=== PATIENT | female | born 1970 | race Caucasian/White ===

== ENCOUNTER → 2024-02-04 | Outpatient (CLI) | payer BC | END | disposition home or self-care (01) | LOC: RADMAMWWP 08:30 | PROVIDERS: ATTEND Obstetrics & Gynecology | DX: Z53.9 Procedure and treatment not carried out, unspecified reason (principal) ==

== ENCOUNTER → 2024-02-19 | Outpatient (CLI) | payer BC ==
--- NOTE | 2024-02-19 13:36 | P.GSCN ---
History of Present Illness Consult date: 02/19/24 Reason for Consult: Left breast lump Requesting physician: Ena Garza History of present illness: Pilar is a 53 year old female seen in consultation for Dr. Garza regarding a left breast mass. Mammogram on 10-28-2023 with a left breast ultrasound. This was BI-RADS 3 probably benign 6-month follow-up ultrasound. Ultrasound revealed nodules somewhat variable and internal density benign demonstrating morphology considered more suspicious than any other. The patient felt a nodule on the right chest wall laterally and one month later Dr. Garza noted nodularity in the left breast. The patient continues to feel nodularity in the lateral right chest wall. The patient had never felt changes in the left breast herself. She is not complaining of pain in the breast. She is not complaining of nipple discharge or skin changes. She has not had any recent trauma or infection in the breast. Caffeine: 4 cups coffee/day nicotine: 5 cigarettes/day, 20 years chocolate: occasional BCP: in remote past for less than 5 years hormones: none Familhy History: father: pancreatic cancer; drinker Hrmonal History: menarche: 16 , breast fed: no, age at first : 31 menopause: still having periods irregular Medical History: Rheumatoid Arthritis/ renvok was taking hydroxy/chloroquine Social History: nicotine: Cigarettes per day Alcohol: Occasional Drugs: Negative Review of Systems - Constitutional Reports sweats - EENT Eyes: denies blurred vision Ears: deny: decreased hearing, tinnitus Ears, nose, mouth and throat: Denies dysphagia - Breasts bilateral: as per HPI - Cardiovascular Denies chest pain, Denies shortness of breath - Respiratory Denies cough, Denies 7 - Gastrointestinal Reports as per HPI - Musculoskeletal Reports as per HPI - Integumentary Denies rash, Denies unusual bruising - Neurological Denies headaches, Denies syncope - Psychiatric Reports as per HPI - Endocrine Reports as per HPI, Reports fatigue - Hematologic/Lymphatic Denies easy bleeding, Denies easy bruising - Allergic/Immunologic Reports as per HPI Past Medical History History of Any Multi-Drug Resistant Organisms: None Reported - Sexual Orientation/Gender Identity What was your sex assigned at ?: Female Preferred Pronoun: She/Her/Hers Do you identify as transgender: No How would you describe your gender identity?: Woman Do you think of your sexual orientation as: Straight/Heterosexual Smoking Status: Current every day smoker Past Alcohol Use History: Occasional Medications and Allergies Allergies Allergy/AdvReac Type Severity Reaction Status Date / Time No Known Allergies Allergy Verified 02/19/24 13:05 Surgical - Exam Vital Signs Temp Pulse Resp BP Pulse Ox 97.6 F 67 15 123/76 98 02/19/24 13:06 02/19/24 13:06 02/19/24 13:06 02/19/24 13:06 02/19/24 13:06 - General no distress - Eyes normal ocular movement - Neck trachea midline - Respiratory normal respiratory effort, clear to auscultation - Cardiovascular Rhythm: regular Heart Sounds: normal: S1, S2 - Abdomen Abdomen: soft, non tender, no guarding, no rigid, no rebound - Integumentary normal turgor - Neurologic no disoriented, no combative - Musculoskeletal normal gait - Psychiatric oriented to time, oriented to person, oriented to place, speech is normal, memory intact breast Exam: BRA: 36B Inspection: Bilateral grade 2 ptosis Palpation: Right breast: Multi positional exam fibrocystic changes, in the lateral aspect there is approximately a 4 mm area of nodularity which is freely mobile but very firm Very nodular breast otherwise but no dominant masses or nodules of concern Right axilla: No adenopathy of concern Left breast: Multi positional exam multiple areas of nodularity in the upper outer quadrant region as well as at the 12:00 region, Left axilla: No adenopathy of concern Results Bilateral mammogram reviewed very dense, left breast ultrasound reviewed appears to have cystic changes Assessment and Plan Assessment: Impression: Nodule right chest wall Nodule left breast upper outer quadrant very dense breast Plan: Bilateral breast MRI Excision of lesion right chest wall in the operating room Consider core biopsy palpable masses left breast after MRI CC: Dr. Garza
[2024-02-19 13:41] VITALS: BP 123/76; PULSE 67; RESP 15; TEMP 97.6
== END ==
LOC: WWCWWP 11:50
PROVIDERS: ATTEND Surgery
DX: N63.21 Unspecified lump in the left breast, upper outer quadrant (principal); R22.2 Localized swelling, mass and lump, trunk; F17.210 Nicotine dependence, cigarettes, uncomplicated

== ENCOUNTER → 2024-03-16 | Outpatient (CLI) | payer BC ==
--- NOTE | 2024-03-18 07:58 | BMR ---
EXAM DATE: 03/16/2024 EXAM DESCRIPTION: MRI-Breast Bilat (W/WO Contrast) INDICATION: Bilateral breast pain. History of breast cysts. COMPARISON: Comparison was made to prior relevant imaging available in PACS TECHNIQUE: Multiplanar multisequence breast MRI was performed prior to and after administration of 5.5 mL of Gadavist intravenously. Post processing was performed utilizing a [employer] workstation. The exam was performed at the [facility] and was provided to review by [facility]. FINDINGS: There is moderate, symmetric background parenchymal enhancement in breasts that are composed of extremely dense fibroglandular tissue. RIGHT BREAST: Review of the dynamic contrast enhanced series shows no rapidly enhancing masses, suspicious enhancement patterns or other abnormalities. The T2 weighted series show numerous well-circumscribed T2 hyperintense nonenhancing masses throughout the right breast with the largest 1.8 x 1.1 cm at 11 o'clock position posterior depth (series 401, image 50) compatible with benign cysts. LEFT BREAST: Review of the dynamic contrast enhanced series shows no rapidly enhancing masses, suspicious enhancement pattern or other abnormalities. The T2 weighted series show numerous well-circumscribed T2 hyperintense nonenhancing masses throughout the left breast with the largest at 12 o'clock position anterior depth measuring 1.6 x 1.2 cm (series 401, image 42) compatible with benign cysts. INCIDENTALS: There is a wedge-shaped mildly T2 hyperintense enhancing soft tissue in the anterior mediastinum which measures grossly 3.7 x 1.4 cm (series 401, image 53 and series 503, image 622). There are slightly prominent bilateral axillary lymph nodes, the largest 2.0 x 0.8 cm on the right (series 401, image 68) and 1.8 x 0.8 cm on the left (series 401, image 65). IMPRESSION: 1. No MR evidence of malignancy in either breast. Numerous benign cysts in both breasts. BI-RADS category 2-benign. Recommendation: MRI screening in 1 year. 2. A 3.7 x 1.4 cm enhancing soft tissue in the anterior mediastinum concerning for thymoma versus residual thymus. Recommend further evaluation with CT chest with contrast. 3. Bilateral mildly prominent axillary lymph nodes which may be reactive. Recommend clinical follow-up. If clinically concerning, they may be further evaluated with axillary ultrasound. [facility]
== END | disposition home or self-care (01) ==
LOC: RADMRIMAIN 07:47
PROVIDERS: ATTEND Surgery
DX: N63.25 Unspecified lump in the left breast, overlapping quadrants (principal); N63.11 Unspecified lump in the right breast, upper outer quadrant; N60.01 Solitary cyst of right breast; N60.02 Solitary cyst of left breast; R59.0 Localized enlarged lymph nodes
CPT/HCPCS: 77049; A9585

== ENCOUNTER → 2024-03-26 | Outpatient (CLI) | payer BC ==
--- NOTE | 2024-03-26 10:38 | P.PN ---
Subjective Progress Note Date: 03/26/24 Principal diagnosis: mass right chest wall left breast lump Requesting physician: Ena Garza History of present illness: Pilar is a 53 year old female seen in consultation for Dr. Garza regarding a left breast mass. Mammogram on 10-28-2023 with a left breast ultrasound. This was BI-RADS 3 probably benign 6-month follow-up ultrasound. Ultrasound revealed nodules somewhat variable and internal density benign demonstrating morphology considered more suspicious than any other. The patient felt a nodule on the right chest wall laterally and one month later Dr. Garza noted nodularity in the left breast. The patient continues to feel nodularity in the lateral right chest wall. The patient had never felt changes in the left breast herself. She is not complaining of pain in the breast. She is not complaining of nipple discharge or skin changes. She has not had any recent trauma or infection in the breast. The patient had a bilateral MRI of the breast done on 03-16-24. This did not show any lesions of concern in the breast, but noted an anterior mediastinal lesion, bilateral milldy prominate lymph nodes. The patient still feels the nodularity on the right chest wall. Caffeine: 4 cups coffee/day nicotine: 5 cigarettes/day, 20 years chocolate: occasional BCP: in remote past for less than 5 years hormones: none Familhy History: father: pancreatic cancer; drinker Hrmonal History: menarche: 16 , breast fed: no, age at first : 31 menopause: still having periods irregular Medical History: Rheumatoid Arthritis/ renvok was taking hydroxy/chloroquine Social History: nicotine: Cigarettes per day Alcohol: Occasional Drugs: Negative Review of Systems - Constitutional Reports sweats - EENT Eyes: denies blurred vision Ears: deny: decreased hearing, tinnitus Ears, nose, mouth and throat: Denies dysphagia - Breasts bilateral: as per HPI - Cardiovascular Denies chest pain, Denies shortness of breath - Respiratory Denies cough - Gastrointestinal Reports as per HPI - Musculoskeletal Reports as per HPI - Integumentary Denies rash, Denies unusual bruising - Neurological Denies headaches, Denies syncope - Psychiatric Reports as per HPI - Endocrine Reports as per HPI, Reports fatigue - Hematologic/Lymphatic Denies easy bleeding, Denies easy bruising - Allergic/Immunologic Reports as per HPI Past Medical History History of Any Multi-Drug Resistant Organisms: None Reported - Sexual Orientation/Gender Identity What was your sex assigned at ?: Female Preferred Pronoun: She/Her/Hers Do you identify as transgender: No How would you describe your gender identity?: Woman Do you think of your sexual orientation as: Straight/Heterosexual Smoking Status: Current every day smoker Past Alcohol Use History: Occasional Medications and Allergies Allergies Allergy/AdvReac Type Severity Reaction Status Date / Time No Known Allergies Allergy Verified 02/19/24 13:05 Objective - Constitutional General appearance: Present: cooperative - EENT Eyes: Present: EOMI ENT: Present: hearing grossly normal - Neck Neck: Present: normal ROM - Respiratory Respiratory: bilateral: CTA - Cardiovascular Heart sounds: normal: S1, S2 - Integumentary Integumentary: Present: normal turgor - Musculoskeletal Musculoskeletal: Present: gait normal - Psychiatric Psychiatric: Present: A&O x's 3, appropriate affect, intact judgment & insight - Additional findings Additional findings: breast Exam: BRA: 36B Inspection: Bilateral grade 2 ptosis Palpation: Right breast: Multi positional exam fibrocystic changes, in the lateral aspect there is approximately a 4 mm area of nodularity which is freely mobile but very firm Very nodular breast otherwise but no dominant masses or nodules of concern Right axilla: Shotty adenopathy Left breast: Multi positional exam multiple areas of nodularity in the upper outer quadrant region as well as at the 12:00 region, Left axilla: Shotty adenopathy No cervical adenopathy of concern, there is prominence of the left clavicle and firmness at this site Bilateral shotty adenopathy in the axilla Liver and spleen are not enlarged No groin adenopathy of concern Assessment and Plan Assessment: Impression: Nodule right chest wall Nodule left breast upper outer quadrant very dense breast MRI no lesions of concern in the breast/bilateral axillary lymph nodes/questionable thymoma Plan: Next CT with contrast to evaluate possible thymoma Excision of lesion right chest wall in the operating room Bilateral axillary ultrasound with ultrasound of the left breast palpable mass as well CC: Dr. Garza
[2024-03-26 10:45] VITALS: BP 113/72; PULSE 72; RESP 17; TEMP 97.8
--- NOTE | 2024-03-26 11:44 | USB ---
Reason for Exam: MRI abnormality. Risk Values: [place] 5 year model risk: 0.7%. NCI Lifetime model risk: 5.9%. Technique: Method: Targeted. Prior Study Comparison: 03/16/2024 Bilateral MR breast bilat wo/w con, [facility]. Findings: The area of palpable concern of both breasts and the axilla of both breasts were scanned. Targeted ultrasound of the bilateral axilla as well as the right palpable site at 9:00 in the left palpable site at 12:00. Right: Lymph nodes are present measuring up to 1.8 x 1.0 x 0.7 cm. There is cortical thickening up to 5.6 mm. Security Investigator tissue sampling can be performed. At the 9:00 palpable site, a 10 m from the nipple, very superficial in location, adjacent oval circumscribed hypoechoic nodules with internal vascularity measuring 8 mm. The surgeon has planned excision for both of these. Left: Similar prominent lymph nodes, largest measuring 2.2 x 0.8 x 0.6 cm. Cortical thickness measuring up to 3.3 mm. At the patient's 12:00 palpable site, 4 7 m from the nipple, there are a couple benign cysts, largest measuring 1.2 cm. Overall Assessment: Suspicious, BI-RAD 4 Management: Ultrasound Core Biopsy of the right breast. Dominant lymph node. Excision is already planned by the surgeon for the superficial palpable nodules 9:00 right breast. Area Results were given to the patient verbally at the time of exam. Electronically signed and approved by: Mary Ann Santiago M.D. Radiologist
== END ==
LOC: WWCWWP 09:56
PROVIDERS: ATTEND Surgery
DX: R22.2 Localized swelling, mass and lump, trunk (principal); N63.21 Unspecified lump in the left breast, upper outer quadrant; N60.01 Solitary cyst of right breast; F17.210 Nicotine dependence, cigarettes, uncomplicated; Z98.890 Other specified postprocedural states

== ENCOUNTER → 2024-03-29 | Outpatient (CLI) | payer BC ==
--- NOTE | 2024-03-29 12:15 | CT ---
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 Coronal/sagittal reconstructions performed. CT DLP: 896 mGycm Automated exposure control for dose reduction was used. FINDINGS: Neck: Leftward nasal septal deviation. 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 Visualized orbits and globes, remainder of the paranasal sinuses, and mastoid air cells appear clear. Visualized intracranial structures show no gross abnormality. The nasopharynx appears clear. There is moderate hypertrophy of the bilateral lingual palatine tonsils. Epiglottis and prevertebral soft tissues are satisfactory. Glottic and subglottic structures and tracheal column appear clear. The thyroid gland, submandibular glands appear satisfactory. Mild atrophy of the bilateral parotid gl ands. No cervical adenopathy is seen. Reversal of the normal cervical lordosis with hypertrophic facet arthropathy and grade 1 anterolisthe sis C3-C4 and grade 1 retrolisthesis C5-C6. CHEST: Heart normal size without pericardial effusion. Aorta normal caliber with conventional access branching anatomy. Nonenlarged to borderline sized bilateral axillary lymph nodes measuring up to 1.6 x 0.7 cm on the ri ght and 1.3 x 0.6 cm on the left. Otherwise, no thoracic lymphadenopathy by CT size criteria. Within the anterior mediastinum, there is mixed soft tissue and fat density. Some of these areas show a somewhat rounded contour, for example, axial image 32 but given the findings are mixed fat density , thymic hyperplasia remains favored. No cystic change or calcifications are identified. Most of this anterior mediastinal density shows concave margins. There is biapical pleural-parenchymal scarring. No consolidation or pleural effusion. Visualized upper abdomen shows no gross abnormality. Bones: Osseous destructive process. IMPRESSION: NECK: 1. MODERATE BILATERAL LINGUAL AND PALATINE TONSILLAR HYPERTROPHY. 2. NO SUSPICIOUS NECK MASS OR CERVICAL LYMPHADENOPATHY SEEN. CHEST: 3. Anterior mediastinal soft tissue shows mostly concave margins and fine intermixed fat density. 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 A slightly rounded area along the inferior portion also shows intermixed fat density making thymoma or thymic mass less likely. Recommend short interva l follow-up in 6 months to reassess. 4. Nonenlarged borderline sized axillary nodes. Probably reactive/post inflammatory. No hari thoraci c lymphadenopathy.
== END | disposition home or self-care (01) ==
LOC: RADCTMAIN 09:29
PROVIDERS: ATTEND Surgery
DX: N63.0 Unspecified lump in unspecified breast (principal); J35.1 Hypertrophy of tonsils
CPT/HCPCS: 70491; 71260; Q9967

== ENCOUNTER 2024-04-06 07:11 | Day surgery (SDC) | payer BC ==
[2024-04-06] MEDS ORDERED: MIDAZOLAM 2 MG/2 ML VIAL IV PRN (07:44)
[2024-04-06] MEDS ORDERED: HYDROmorphone 0.5 MG/0.5 ML SYRINGE IVP PRN (07:44)
[2024-04-06] MEDS ORDERED: LIDOCAINE 1% (10MG/ML) FOR IV START INTRADERMA PRN (07:44)
[2024-04-06] MEDS: DEXAMETHASONE SOD PHOSPHATE 4 MG/ML 1 ML VIAL IV ONE (07:57)
[2024-04-06] MEDS: ONDANSETRON 4 MG/2 ML VIAL IVP ONE (07:57)
[2024-04-06] MEDS: ACETAMINOPHEN TAB 500 MG TAB PO PRN (07:57)
[2024-04-06] MEDS: LACTATED RINGERS 1,000 ML IV SCH (07:57)
[2024-04-06 08:09] LABS: Basophils % (A) 0 %; Eosinophils # (A) 0.1 k/uL (0-0.7); Eosinophils % (A) 1 %; HCT 33.8 % (34.0-46.0); HGB 11.3 gm/dL (11.4-16.0); Lymphocytes # (A) 0.7 k/uL (1.0-4.8); Lymphocytes % (A) 9 %; MCH 32.7 pg (25.0-35.0); MCHC 33.4 g/dL (31.0-37.0); MCV 98.1 fL (80.0-100.0); Monocytes # (A) 0.5 k/uL (0-1.0); Monocytes % (A) 6 %; Neutrophils # (A) 6.8 k/uL (1.3-7.7); Neutrophils % (A) 82 %; Platelet Count 212 k/uL (150-450); RBC 3.44 m/uL (3.80-5.40); RDW 12.2 % (11.5-15.5); WBC 8.3 k/uL (3.8-10.6)
[2024-04-06] MEDS: HEPARIN SODIUM,PORCINE 5,000 UNIT/ML 1 ML VIAL SQ PRN (08:15)
[2024-04-06] MEDS ORDERED: MIDAZOLAM 2 MG/2 ML VIAL ONE (08:40)
[2024-04-06] MEDS ORDERED: PROPOFOL 10 MG/ML 20 ML VIAL IV ONE (08:40)
[2024-04-06] MEDS ORDERED: PHENYLEPHRINE 10 MG/ML VIAL ONE (08:40)
[2024-04-06] MEDS ORDERED: fentaNYL (PF) 50 MCG/ML 2 ML AMP ONE (08:40)
[2024-04-06] MEDS ORDERED: LIDOCAINE 1% INJ 10MG/ML (20 ML MDV) ONE (08:40)
--- NOTE | 2024-04-06 09:30 | P.BCAON ---
Date of Procedure: 04/06/24 Preoperative Diagnosis: Mass right lateral breast Postoperative Diagnosis: Same Procedure(s) Performed: Wide excision mass right lateral breast Anesthesia: RAVIN Surgeon: Randi Sloan Estimated Blood Loss (ml): 2 IV fluids (ml): 800 Pathology: other (Breast tissue) Condition: stable Disposition: same day Indications for Procedure: Palpable mass right breast very superficial not felt to be amiable to needle biopsy secondary to the superficial nature Operative Findings: Cystic breast changes Description of Procedure: The patient was taken to the operating room and following induction of anes thesia the right breast was prepped and draped in a sterile fashion. Wide excision was performed of an area of firm palpable abnormality in the lateral breast. The skin was removed with the specimen. The specimen was approximately 4 cm x 2 cm. Multiple cysts were identified in the specimen. Additional cyst were identified in the breast parenchyma. The wound was well irrigated. After assuring that hemostasis was attained the deep tissues were closed using 3-0 Vicryl suture. Posterior dissection was onto the pectoralis muscle. The subcutaneous tissue was closed using 3-0 Vicryl suture. The skin was closed using 4-0 Monocryl. Surgical glue was placed. 10 cc of 1% lidocaine were used to further anesthetize the skin. All instrument and sponge counts were correct at the end of the case. The patient tolerated the procedure in stable condition.
[2024-04-06] MEDS: LIDOCAINE 1% INJ 10MG/ML (20 ML MDV) SQ ONE (09:34)
[2024-04-06] MEDS: LACTATED RINGERS 1,000 ML IV ONE (09:34)
[2024-04-06 10:38] VITALS: TEMP 97.9
[2024-04-06 11:36] VITALS: BP 122/76; PULSE 67; RESP 18
== END 2024-04-06 11:03 | disposition home or self-care (01) ==
LOC: OR 07:11
PROVIDERS: ATTEND Surgery
DX: N60.21 Fibroadenosis of right breast (principal); N60.81 Other benign mammary dysplasias of right breast
CPT/HCPCS: 81025; 85025; 88307; 19125; J2250; J1644; J1100; J2405; J0690; J2001; J3010; J2704; J2371

== ENCOUNTER → 2024-04-29 | Outpatient (CLI) | payer BC ==
[2024-04-29 14:09] VITALS: BP 122/70; PULSE 70; RESP 17; TEMP 98.3
--- NOTE | 2024-04-29 14:25 | P.BCPO ---
Progress Note - Text Progress Note Date: 04/29/24 Pilar is status post right breast lumpectomy on 04-06-2024. Pathology revealed proliferative fibrocystic change with enlarged ductal cyst, columnar cell change, apocrine metaplasia, focal usual ductal hyperplasia, focal microcalcifications, and sclerosing adenosis. A small benign papilloma was identified. Focally favored flat epithelial atypia was noted. She tolerated the procedure without difficulty. Incision: Clean and dry Plan: Repeat examination in 6 months Patient will follow-up sooner any questions or concerns CC: Dr. Mayers Post Op Education - Post Op Education Post Op Education Provided Date: 04/29/24 - Functional Assessment Performed?: No (arm adduction) Referal Provided?: No Path Report - Was patient given path report? Path Report Date Given: 04/29/24
== END ==
LOC: WWCWWP 13:47
PROVIDERS: ATTEND Surgery
DX: R92.0 Mammographic microcalcification found on diagnostic imaging of breast (principal); N60.11 Diffuse cystic mastopathy of right breast; N60.01 Solitary cyst of right breast; N60.89 Other benign mammary dysplasias of unspecified breast; D24.1 Benign neoplasm of right breast; N60.91 Unspecified benign mammary dysplasia of right breast; Z48.817 Encounter for surgical aftercare following surgery on the skin and subcutaneous tissue; Z88.5 Allergy status to narcotic agent; Z88.1 Allergy status to other antibiotic agents